=== PATIENT | male | born 1995 | race Caucasian/White ===

== ENCOUNTER 2020-04-06 19:41 | Emergency (ER) | payer OTHER ==
[~2020-04-06] VITALS: Ht 175.3 cm; Wt 76.8 kg
[2020-04-06 20:18] LABS: AMPHET/METH SCREEN,URINE NEGATIVE (NEGATIVE); BARBITURATE SCREEN, URINE NEGATIVE (NEGATIVE); BENZODIAZEPINES SCREEN,URINE NEGATIVE (NEGATIVE); CANNABINOID SCREEN,URINE NEGATIVE (NEGATIVE); COCAINE SCREEN,URINE NEGATIVE (NEGATIVE); METHADONE SCREEN, URINE NEGATIVE (NEGATIVE); OPIATE SCREEN,URINE NEGATIVE (NEGATIVE); PHENCYCLIDINE SCREEN,URINE NEGATIVE (NEGATIVE)
[2020-04-06 20:31] LABS: BASOPHILS % (AUTO) 0.8 % (0.0-2.0); HEMOGLOBIN 15.2 g/dL (13.5-17.5); LYMPHOCYTES # (AUTO) 1.5 K/uL (1.0-4.8); LYMPHOCYTES % (AUTO) 17.9 % (22.0-44.0); MEAN CORPUSCULAR HEMOGLOBIN 31.1 pg (26.0-34.0); MEAN CORPUSCULAR HGB CONC 33.8 G/dL (31.0-37.0); MEAN CORPUSCULAR VOLUME 92 fL (80-100); MONOCYTES # (AUTO) 0.5 K/uL (0.1-1.0); NEUTROPHILS # (AUTO) 5.7 K/uL (1.8-7.7); NEUTROPHILS % (AUTO) 70.3 % (40.0-70.0); PLATELET COUNT (AUTO) 272 K/uL (150-450); RED BLOOD CELL COUNT(AUTO) 4.88 MIL/uL (4.50-5.90); RED CELL DISTRIBUTION WIDTH 14.8 % (11.5-14.5)
[2020-04-06 20:40] LABS: ANION GAP 4 mmol/L (8-16); CALCIUM, TOTAL 9.2 mg/dL (8.8-10.5); CARBON DIOXIDE 31 mmol/L (22-29); CHLORIDE 104 mmol/L (98-107); CREATININE 0.88 mg/dL (0.60-1.30); GLOMERULAR FILTR. RATE CALC > 60 mL/min (>60); GLUCOSE,RANDOM 108 mg/dL (70-110); POTASSIUM 4.4 mmol/L (3.5-5.1); SODIUM SERUM 139 mmol/L (136-145); UREA NITROGEN, BLOOD 5 mg/dL (7-18)
[2020-04-06 20:47] LABS: ALANINE AMINOTRANSFERASE 27 U/L (12-78); ALBUMIN 3.7 g/dL (3.4-5.0); ALKALINE PHOSPHATASE 72 U/L (46-116); ASPARTATE AMINOTRANSFERASE 15 U/L (15-37); BILIRUBIN,TOTAL 0.3 mg/dL (0.1-1.0); TOTAL PROTEIN, SERUM 7.5 g/dL (6.4-8.2)
[2020-04-06 22:23] LABS: COVID AG,FIA SOURCE NASOPHARYNGEAL
[2020-04-07 00:30] VITALS: BP 128/75
== END 2020-04-07 01:00 | disposition home or self-care (01) ==
LOC: EMS 19:43 → EDBD 19:43 → EMS 04-07 01:00
DX: F15.10 Other stimulant abuse, uncomplicated (principal); R05 Cough; F41.9 Anxiety disorder, unspecified; Z20.828 Contact with and (suspected) exposure to other viral communicable diseases
CPT/HCPCS: 36415; 80053; 80307; 85025; 87426; 99283; G0480; U0003

== ENCOUNTER 2020-04-09 03:56 | Emergency (ER) | payer OTHER ==
[~2020-04-09] VITALS: Ht 175.3 cm; Wt 76.8 kg
[2020-04-09 05:03] LABS: BASOPHILS % (AUTO) 1.1 % (0.0-2.0); EOSINOPHILS % (AUTO) 4.4 % (1.0-6.0); HEMATOCRIT 41.9 % (41-53); HEMOGLOBIN 13.9 g/dL (13.5-17.5); LYMPHOCYTES % (AUTO) 19.3 % (22.0-44.0); MEAN CORPUSCULAR HEMOGLOBIN 30.2 pg (26.0-34.0); MEAN CORPUSCULAR HGB CONC 33.1 G/dL (31.0-37.0); MEAN CORPUSCULAR VOLUME 91 fL (80-100); MONOCYTES # (AUTO) 0.9 K/uL (0.1-1.0); MONOCYTES % (AUTO) 8.9 % (2.0-9.0); NEUTROPHILS # (AUTO) 6.8 K/uL (1.8-7.7); NEUTROPHILS % (AUTO) 66.3 % (40.0-70.0); PLATELET COUNT (AUTO) 245 K/uL (150-450); RED CELL DISTRIBUTION WIDTH 13.9 % (11.5-14.5)
[2020-04-09 05:09] LABS: ANION GAP 8 mmol/L (8-16); CALCIUM, TOTAL 8.6 mg/dL (8.8-10.5); CARBON DIOXIDE 31 mmol/L (22-29); CHLORIDE 103 mmol/L (98-107); CREATININE 0.76 mg/dL (0.60-1.30); GLOMERULAR FILTR. RATE CALC > 60 mL/min (>60); GLUCOSE,RANDOM 97 mg/dL (70-110); POTASSIUM 3.6 mmol/L (3.5-5.1); SODIUM SERUM 142 mmol/L (136-145); UREA NITROGEN, BLOOD 7 mg/dL (7-18)
[2020-04-09 05:14] LABS: ALANINE AMINOTRANSFERASE 30 U/L (12-78); ALBUMIN 3.6 g/dL (3.4-5.0); ALKALINE PHOSPHATASE 64 U/L (46-116); ASPARTATE AMINOTRANSFERASE 18 U/L (15-37); BILIRUBIN,TOTAL 0.3 mg/dL (0.1-1.0); TOTAL PROTEIN, SERUM 7.1 g/dL (6.4-8.2)
[2020-04-09 05:45] VITALS: BP 120/77
== END 2020-04-09 06:06 | disposition home or self-care (01) ==
LOC: EMS 03:57
DX: F29 Unspecified psychosis not due to a substance or known physiological condition (principal); F19.90 Other psychoactive substance use, unspecified, uncomplicated
CPT/HCPCS: 36415; 80053; 85025; 99284; G0480

== ENCOUNTER 2021-08-23 19:36 | Inpatient (IN) | payer MEDICAID, OTHER ==
[~2021-08-23] VITALS: Ht 172.7 cm; Wt 83.1 kg
[2021-08-23 21:57] LABS: AMPHET/METH SCREEN,URINE NEGATIVE (NEGATIVE); BARBITURATE SCREEN, URINE NEGATIVE (NEGATIVE); BENZODIAZEPINES SCREEN,URINE NEGATIVE (NEGATIVE); CANNABINOID SCREEN,URINE NEGATIVE (NEGATIVE); COCAINE SCREEN,URINE NEGATIVE (NEGATIVE); METHADONE SCREEN, URINE NEGATIVE (NEGATIVE); OPIATE SCREEN,URINE NEGATIVE (NEGATIVE)
[2021-08-23 21:58] LABS: BASOPHILS % (AUTO) 1.3 % (0.0-2.0); EOSINOPHILS % (AUTO) 9.9 % (1.0-6.0); HEMATOCRIT 43.3 % (41-53); HEMOGLOBIN 14.8 g/dL (13.5-17.5); LYMPHOCYTES # (AUTO) 2.1 K/uL (1.0-4.8); LYMPHOCYTES % (AUTO) 29.9 % (22.0-44.0); MEAN CORPUSCULAR HEMOGLOBIN 31.2 pg (26.0-34.0); MEAN CORPUSCULAR HGB CONC 34.1 G/dL (31.0-37.0); MEAN CORPUSCULAR VOLUME 91 fL (80-100); MONOCYTES # (AUTO) 0.6 K/uL (0.1-1.0); MONOCYTES % (AUTO) 8.3 % (2.0-9.0); NEUTROPHILS # (AUTO) 3.6 K/uL (1.8-7.7); NEUTROPHILS % (AUTO) 50.6 % (40.0-70.0); PLATELET COUNT (AUTO) 197 K/uL (150-450); RED BLOOD CELL COUNT(AUTO) 4.74 MIL/uL (4.50-5.90); RED CELL DISTRIBUTION WIDTH 15.9 % (11.5-14.5)
[2021-08-23 22:00] LABS: PHENCYCLIDINE SCREEN,URINE NEGATIVE (NEGATIVE)
[2021-08-23 22:07] LABS: ANION GAP 4 mmol/L (8-16); CALCIUM, TOTAL 9.2 mg/dL (8.8-10.5); CARBON DIOXIDE 33 mmol/L (22-29); CHLORIDE 103 mmol/L (98-107); CREATININE 0.81 mg/dL (0.60-1.30); GLOMERULAR FILTR. RATE CALC > 60 mL/min (>60); GLUCOSE,RANDOM 102 mg/dL (70-110); POTASSIUM 4.6 mmol/L (3.5-5.1); SODIUM SERUM 140 mmol/L (136-145); UREA NITROGEN, BLOOD 12 mg/dL (7-18)
[2021-08-23 22:12] LABS: ALANINE AMINOTRANSFERASE 69 U/L (12-78); ALBUMIN 3.8 g/dL (3.4-5.0); ALKALINE PHOSPHATASE 69 U/L (46-116); BILIRUBIN,TOTAL 0.4 mg/dL (0.1-1.0); TOTAL PROTEIN, SERUM 7.9 g/dL (6.4-8.2)
[2021-08-23 22:20] LABS: ASPARTATE AMINOTRANSFERASE 26 U/L (15-37)
[2021-08-24] MEDS ORDERED: DiphenhydrAMINE HCL 25 MG CAPSULE PO ONE (02:00)
[2021-08-24] MEDS ORDERED: HALOPERIDOL 5 MG TABLET PO ONE (02:00)
[2021-08-24] MEDS ORDERED: LORazepam 2 MG TABLET PO ONE (02:00)
[2021-08-24] MEDS: ZOLPIDEM TARTRATE 10 MG TABLET PO PRN (02:21)
[2021-08-24 17:30] VITALS: BP 125/90
[2021-08-24 20:06] LABS: GLUCOMETER DEV NAME(LOC) POC.BV
[2021-08-25 02:52] VITALS: BP 119/81
[2021-08-25 08:12] VITALS: BP 121/74
[2021-08-25 16:16] VITALS: BP 121/82
[2021-08-25] MEDS: ChlorproMAZINE HCL 25 MG TABLET PO SCH (17:00)
[2021-08-25] MEDS: VALPROIC ACID 250 MG/5 ML SOLUTION UDCUP PO SCH (17:23)
[2021-08-25] MEDS: ZOLPIDEM TARTRATE 10 MG TABLET PO PRN (21:07)
[2021-08-25] MEDS: HALOPERIDOL 5 MG TABLET PO PRN (21:08)
[2021-08-25] MEDS: LORazepam 2 MG TABLET PO PRN (23:48)
[2021-08-26 06:58] VITALS: BP 125/67
[2021-08-26 08:19] VITALS: BP 102/65
[2021-08-26] MEDS: VALPROIC ACID 250 MG/5 ML SOLUTION UDCUP PO SCH ×3 (08:22→16:15)
[2021-08-26] MEDS: ChlorproMAZINE HCL 25 MG TABLET PO SCH ×3 (08:22→16:15)
[2021-08-26] MEDS: LORazepam 2 MG TABLET PO PRN (08:22)
[2021-08-26 16:16] VITALS: BP 107/62
[2021-08-26] MEDS: ZOLPIDEM TARTRATE 10 MG TABLET PO PRN (21:13)
[2021-08-27 04:19] VITALS: BP 108/74
[2021-08-27 08:31] VITALS: BP 103/61
[2021-08-27] MEDS: ChlorproMAZINE HCL 25 MG TABLET PO SCH ×3 (09:16→17:35)
[2021-08-27] MEDS: VALPROIC ACID 250 MG/5 ML SOLUTION UDCUP PO SCH ×3 (09:16→17:36)
[2021-08-27] MEDS: HALOPERIDOL 5 MG TABLET PO PRN (12:32)
[2021-08-27] MEDS: LORazepam 2 MG TABLET PO PRN ×2 (12:32→17:35)
[2021-08-27 16:25] VITALS: BP 110/72
[2021-08-28 05:28] VITALS: BP 109/72
[2021-08-28 08:29] VITALS: BP 112/68
[2021-08-28] MEDS: LORazepam 2 MG TABLET PO PRN ×3 (08:51→21:30)
[2021-08-28] MEDS: ChlorproMAZINE HCL 25 MG TABLET PO SCH ×3 (08:51→16:46)
[2021-08-28] MEDS: VALPROIC ACID 250 MG/5 ML SOLUTION UDCUP PO SCH ×3 (08:51→16:46)
[2021-08-28] MEDS ORDERED: HALOPERIDOL LACTATE 5 MG/ML VIAL IM PRN ×2 (12:00)
[2021-08-28 13:38] LABS: GLUCOMETER DEV NAME(LOC) POC.BV
[2021-08-28 16:18] VITALS: BP 126/72
[2021-08-28] MEDS: ZOLPIDEM TARTRATE 10 MG TABLET PO PRN (20:32)
[2021-08-28] MEDS ORDERED: BENZOCAINE/MENTHOL LOZENGE PO PRN (21:45)
[2021-08-29 05:37] VITALS: BP 110/72
[2021-08-29 08:21] VITALS: BP 106/61
[2021-08-29] MEDS: VALPROIC ACID 250 MG/5 ML SOLUTION UDCUP PO SCH ×3 (08:24→17:13)
[2021-08-29] MEDS: ChlorproMAZINE HCL 25 MG TABLET PO SCH ×3 (08:24→17:12)
[2021-08-29 16:14] VITALS: BP 111/80
[2021-08-29] MEDS: HALOPERIDOL 5 MG TABLET PO PRN (17:20)
[2021-08-29] MEDS: LORazepam 2 MG TABLET PO PRN (17:21)
[2021-08-30 04:32] VITALS: BP 101/67
[2021-08-30 08:17] VITALS: BP 112/68
[2021-08-30] MEDS: ChlorproMAZINE HCL 25 MG TABLET PO SCH ×3 (09:00→16:40)
[2021-08-30] MEDS: LORazepam 2 MG TABLET PO PRN ×4 (09:00→21:20)
[2021-08-30] MEDS: VALPROIC ACID 250 MG/5 ML SOLUTION UDCUP PO SCH ×3 (09:00→16:40)
[2021-08-30] MEDS: HALOPERIDOL 5 MG TABLET PO PRN ×3 (09:01→20:12)
[2021-08-30 16:16] VITALS: BP 107/67
[2021-08-30] MEDS ORDERED: DiphenhydrAMINE HCL 50 MG/ML VIAL IM ONE (17:30)
[2021-08-30] MEDS ORDERED: ChlorproMAZINE HCL 50 MG/2 ML AMP IM ONE (17:30)
[2021-08-30] MEDS ORDERED: LORazepam 2 MG/ML VIAL IM ONE (17:30)
[2021-08-30] MEDS ORDERED: ChlorproMAZINE HCL 50 MG/2 ML AMP ONE (17:32)
[2021-08-30] MEDS ORDERED: DiphenhydrAMINE HCL 50 MG/ML VIAL ONE (17:32)
[2021-08-30] MEDS: ZOLPIDEM TARTRATE 10 MG TABLET PO PRN (20:12)
[2021-08-31 04:59] VITALS: BP 109/82
[2021-08-31] MEDS: VALPROIC ACID 250 MG/5 ML SOLUTION UDCUP PO SCH ×3 (08:32→16:20)
[2021-08-31] MEDS: ChlorproMAZINE HCL 25 MG TABLET PO SCH (08:32)
[2021-08-31 08:41] VITALS: BP 105/72
[2021-08-31] MEDS ORDERED: ChlorproMAZINE HCL 25 MG TABLET PO ONE (10:15)
[2021-08-31] MEDS: ChlorproMAZINE HCL 50 MG TABLET PO SCH ×2 (12:49→16:22)
[2021-08-31] MEDS: HALOPERIDOL 5 MG TABLET PO PRN (16:21)
[2021-08-31] MEDS: LORazepam 2 MG TABLET PO PRN (16:21)
[2021-08-31 16:22] VITALS: BP 112/74
[2021-09-01 06:08] VITALS: BP 102/58
[2021-09-01] MEDS: ChlorproMAZINE HCL 50 MG TABLET PO SCH ×3 (08:27→16:14)
[2021-09-01] MEDS: VALPROIC ACID 250 MG/5 ML SOLUTION UDCUP PO SCH ×3 (08:28→16:14)
[2021-09-01 08:31] VITALS: BP 100/60
[2021-09-01 16:13] VITALS: BP 140/92
[2021-09-01] MEDS: LORazepam 2 MG TABLET PO PRN (16:14)
[2021-09-01] MEDS: HALOPERIDOL 5 MG TABLET PO PRN (16:14)
[2021-09-02 04:20] VITALS: BP 128/84
[2021-09-02 08:13] VITALS: BP 121/82
[2021-09-02] MEDS: ChlorproMAZINE HCL 50 MG TABLET PO SCH ×3 (08:35→17:31)
[2021-09-02] MEDS: HALOPERIDOL 5 MG TABLET PO PRN ×2 (08:35→14:00)
[2021-09-02] MEDS: LORazepam 2 MG TABLET PO PRN ×2 (08:36→13:59)
[2021-09-02] MEDS: VALPROIC ACID 250 MG/5 ML SOLUTION UDCUP PO SCH ×3 (08:37→17:31)
[2021-09-02 16:17] VITALS: BP 112/72
[2021-09-02] MEDS: ZOLPIDEM TARTRATE 10 MG TABLET PO PRN (20:41)
[2021-09-02] MEDS ORDERED: LORazepam 2 MG/ML VIAL ONE (23:47)
[2021-09-02] MEDS ORDERED: DiphenhydrAMINE HCL 50 MG/ML VIAL ONE (23:47)
[2021-09-03] MEDS ORDERED: DiphenhydrAMINE HCL 50 MG/ML VIAL IM ONE
[2021-09-03] MEDS ORDERED: LORazepam 2 MG/ML VIAL IM ONE
[2021-09-03] MEDS ORDERED: HALOPERIDOL LACTATE 5 MG/ML VIAL IM ONE
[2021-09-03 05:12] VITALS: BP 118/74
[2021-09-03] MEDS: ChlorproMAZINE HCL 50 MG TABLET PO SCH ×3 (08:44→16:14)
[2021-09-03] MEDS: HALOPERIDOL 5 MG TABLET PO PRN ×2 (08:44→16:14)
[2021-09-03] MEDS: VALPROIC ACID 250 MG/5 ML SOLUTION UDCUP PO SCH ×3 (08:44→16:13)
[2021-09-03] MEDS: LORazepam 2 MG TABLET PO PRN ×2 (08:44→16:14)
[2021-09-03 16:21] VITALS: BP 133/97
[2021-09-04] MEDS: ZOLPIDEM TARTRATE 10 MG TABLET PO PRN ×2 (00:17→21:59)
[2021-09-04] MEDS: LORazepam 2 MG TABLET PO PRN ×4 (00:17→21:58)
[2021-09-04 05:42] VITALS: BP 107/68
[2021-09-04] MEDS: HALOPERIDOL 5 MG TABLET PO PRN ×3 (08:44→21:58)
[2021-09-04] MEDS: ChlorproMAZINE HCL 50 MG TABLET PO SCH ×3 (08:44→16:25)
[2021-09-04] MEDS: VALPROIC ACID 250 MG/5 ML SOLUTION UDCUP PO SCH ×3 (08:44→16:25)
[2021-09-04] MEDS ORDERED: TUBERCULIN, PURIFIED PROTEIN DERIVATIVE 5 TU/0.1 ML SYRINGE ID ONE (11:15)
[2021-09-04 16:29] VITALS: BP 112/72
[2021-09-05 00:02] VITALS: BP 119/84
[2021-09-05] MEDS: ChlorproMAZINE HCL 50 MG TABLET PO SCH ×3 (08:39→17:00)
[2021-09-05] MEDS: HALOPERIDOL 5 MG TABLET PO PRN (08:39)
[2021-09-05] MEDS: VALPROIC ACID 250 MG/5 ML SOLUTION UDCUP PO SCH ×3 (08:39→17:00)
[2021-09-05] MEDS: LORazepam 2 MG TABLET PO PRN (08:39)
[2021-09-05] MEDS ORDERED: DiphenhydrAMINE HCL 50 MG/ML VIAL ONE (15:53)
[2021-09-05] MEDS ORDERED: LORazepam 2 MG/ML VIAL ONE (15:53)
[2021-09-05] MEDS ORDERED: HALOPERIDOL LACTATE 5 MG/ML VIAL IM ONE (16:00)
[2021-09-05] MEDS ORDERED: DiphenhydrAMINE HCL 50 MG/ML VIAL IM ONE (16:00)
[2021-09-05] MEDS ORDERED: LORazepam 2 MG/ML VIAL IM ONE (16:00)
[2021-09-05 16:13] VITALS: BP 118/73
== END 2021-09-06 | disposition left against medical advice (07) | DRG 750 ==
LOC: EDUNIT# 19:36 → EMS 19:43 → B3A 08-24 12:10
PROVIDERS: ADMIT Psychiatry & Neurology Child & Adolescent Psychiatry; ATTEND Psychiatry & Neurology Child & Adolescent Psychiatry
DX: F25.1 Schizoaffective disorder, depressive type (principal); Z59.00 Homelessness unspecified; F19.10 Other psychoactive substance abuse, uncomplicated; F41.9 Anxiety disorder, unspecified; J44.9 Chronic obstructive pulmonary disease, unspecified; K59.00 Constipation, unspecified; Z20.822 Contact with and (suspected) exposure to COVID-19; Z53.29 Procedure and treatment not carried out because of patient's decision for other reasons
CPT/HCPCS: 80053; 80164; 85025; 87081; 99285; G0480; J1200; J1630; J2060; J3230